=== PATIENT | male | born 1985 | race Caucasian/White ===

== ENCOUNTER 2018-03-19 00:37 | Emergency (ER) | payer OTHER ==
[~2018-03-19] VITALS: Ht 180.3 cm; Wt 86.2 kg
[2018-03-19 00:39] VITALS: Ht 180.3 cm; Wt 86.2 kg
[2018-03-19 02:33] VITALS: BP 150/104
== END 2018-03-19 02:33 | disposition home or self-care (01) ==
LOC: ED 00:37
DX: S16.1XXA Strain of muscle, fascia and tendon at neck level, initial encounter (principal); S29.012A Strain of muscle and tendon of back wall of thorax, initial encounter; I10 Essential (primary) hypertension; K21.9 Gastro-esophageal reflux disease without esophagitis; X50.0XXA Overexertion from strenuous movement or load, initial encounter; X50.9XXA Other and unspecified overexertion or strenuous movements or postures, initial encounter; Y93.89 Activity, other specified; Y92.89 Other specified places as the place of occurrence of the external cause; Y99.8 Other external cause status
CPT/HCPCS: 72072; J1885